=== PATIENT | female | born 1985 | race Caucasian/White ===

== ENCOUNTER 2017-10-05 10:20 | Emergency (ER) | payer MEDICAID, OTHER ==
--- NOTE | 2017-10-05 11:52 | ED PDOC ---
Arrival/HPI - General Chief Complaint: ENT Problem Time Seen by Provider: 10/05/17 11:43 Historian: Patient - History of Present Illness Narrative History of Present Illness (Text): 10/05/17 12:27 32-year-old female presents today with left ear pain 4 days. Patient states left ear pain has been worsening over the past 4 days. No medications have been taken for pain at home. Patient states 2 days ago she felt a pop in the ear. Patient states since then she has a clogged sensation within the ear. Patient denies headaches dizziness or weakness. No chest pain or shortness of breath. Complaining of nasal congestion. No abdominal pain. No vomiting. No sick contacts. No other complaints Quality: Throbbing Severity Level: 5 Past Medical History - Provider Review Nursing Documentation Reviewed: Yes - Travel History Have you recently traveled outside [place] w/in the past 3 mons?: No - Psychiatric Hx Substance Use: No Family/Social History - Physician Review Nursing Documentation Reviewed: Yes Family/Social History: Unknown Family HX Smoking Status: Never Smoked Hx Alcohol Use: No Hx Substance Use: No Allergies/Home Meds Allergies/Adverse Reactions: Allergies No Known Allergies Allergy (Verified 10/05/17 11:25) Review of Systems - Review of Systems Constitutional: absent: Fatigue, Fevers ENT: Sinus Congestion, Other (left ear pain) Respiratory: absent: SOB, Cough Cardiovascular: absent: Chest Pain, Palpitations Gastrointestinal: absent: Abdominal Pain, Nausea, Vomiting Musculoskeletal: absent: Arthralgias Neurological: absent: Headache, Dizziness Psychiatric: absent: Anxiety, Depression Physical Exam Vital Signs Reviewed: Yes Vital Signs Temp Pulse Resp BP Pulse Ox 10/05/17 12:09 98.3 F 82 18 126/83 100 Temperature: Afebrile Blood Pressure: Normal Pulse: Regular Respiratory Rate: Normal Appearance: Positive for: Well-Appearing, Non-Toxic, Comfortable Pain Distress: None Mental Status: Positive for: Alert and Oriented X 3 - Systems Exam Head: Present: Atraumatic Ears: Present: Erythema, Normal Canal, Other (left Ear; + TM erythema; no bleeding, no visualized perforation. no fluid. no mastoid tenderness or erythema. ). No: Normal, NORMAL TM Mouth: Present: Moist Mucous Membranes Pharnyx: Present: Normal. No: ERYTHEMA, EXUDATE Nose (External): Present: Atraumatic Nose (Internal): Present: Normal Inspection Neck: Present: Normal Range of Motion, Trachea Midline. No: Lymphadenopathy Respiratory/Chest: Present: Clear to Auscultation Cardiovascular: Present: Regular Rate and Rhythm Neurological: Present: GCS=15 Skin: Present: Warm, Dry, Normal Color. No: Rashes Psychiatric: Present: Alert, Oriented x 3 Medical Decision Making ED Course and Treatment: 10/05/17 11:51 Patient is nontoxic well appearing in no distress. Vital signs are stable Patient is refusing to give urine sample to rule out . Patient claims she is not . Tylenol by mouth amoxicillin po Advised patient to follow-up with the ENT specialist within the next 2 days. I advised follow up with primary care physician within the next 2 days, advised to increase fluids take medications as prescribed and return if symptoms worsen persist or if new symptoms develop Patient verbalizes understanding of discharge instructions and need for immediate followup. all aspects of this case were discussed the attending of record. IMPRESSION; otitis media Tylenol every 4 hours as needed for pain/fever reduction Increase fluids Amoxicillin 3 times daily x 10 days. Follow up primary care physician within the next 2 days Return if symptoms worsen persist or if the symptoms develop - Medication Orders Current Medication Orders: Discontinued Medications Acetaminophen (Tylenol 325mg Tab) 975 mg PO STAT STA Stop: 10/05/17 11:51 Amoxicillin (Amoxil 500 Mg Cap) 500 mg PO STAT STA PRN Reason: Protocol Stop: 10/05/17 11:51 Disposition/Present on Arrival - Present on Arrival Any Indicators Present on Arrival: No History of DVT/PE: No History of Uncontrolled Diabetes: No Urinary Catheter: No History of Decub. Ulcer: No History Surgical Site Infection Following: None - Disposition Have Diagnosis and Disposition been Completed?: Yes Diagnosis: Otitis media Disposition: HOME/ ROUTINE Disposition Time: 11:49 Patient Plan: Discharge Patient Problems: Current Active Problems Problem Status Onset Otitis media Acute Condition: GOOD Discharge Instructions (ExitCare): Otitis Media (ED) Additional Instructions: Tylenol every 4 hours as needed for pain/fever reduction Increase fluids amoxicillin; 3 times daily x 10 days Follow up with the ENT specialist within the next 2 days. Follow up primary care physician within the next 2 days. Return if symptoms worsen persist or if the symptoms develop Prescriptions: Amoxicillin 500 mg PO TID #30 tab Referrals: PCP,NO [Primary Care Provider] - Follow up with primary Noemi Pa MD [Staff Provider] - Follow up with primary Marshall Villegas DO [Doctor Osteopathy] - Follow up with primary [facility] [Outside] - Follow up with primary Forms: [employer] (Kinyarwanda), WORK NOTE
[2017-10-05 12:11] VITALS: BP 126/83; PULSE 82; RESP 18; TEMP 98.3; O2SAT 100
== END 2017-10-05 12:28 | disposition home or self-care (01) ==
LOC: ED 10:20
DX: H66.92 Otitis media, unspecified, left ear (principal)

== ENCOUNTER 2018-03-01 16:25 | Emergency (ER) | payer OTHER ==
[2018-03-01 16:38] VITALS: TEMP 98.9; O2SAT 99
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
[2018-03-01 21:24] VITALS: BP 137/72; PULSE 80; RESP 18
--- NOTE | 2018-03-01 22:33 | CARD ---
APPROVED REPORT EKG Measurement Heart [id number] <Conclusion> Normal sinus rhythm with sinus arrhythmia Normal ECG
== END 2018-03-01 19:50 | disposition home or self-care (01) ==
LOC: ED 16:25
DX: F41.9 Anxiety disorder, unspecified (principal)